=== PATIENT | female | born 1990 | race Caucasian/White ===

== ENCOUNTER 2022-05-11 10:26 | Emergency (ER) | payer OTHER ==
[2022-05-11] MEDS ORDERED: predniSONE 20 MG TAB ONE (11:58)
[2022-05-11] MEDS ORDERED: Famotidine 20 MG TAB ONE (11:59)
== END 2022-05-11 12:29 | disposition home or self-care (01) ==
LOC: CSHERS 10:26
DX: L50.9 Urticaria, unspecified (principal); F17.290 Nicotine dependence, other tobacco product, uncomplicated
CPT/HCPCS: 99283; J7512